=== PATIENT | male | born 1990 | race Hispanic/Latino ===

== ENCOUNTER 2020-04-22 05:47 | Emergency (ER) | payer SELFPAY ==
[2020-04-22] MEDS ORDERED: HYDROCODONE/APAP 5/325 MG TAB ONE (06:14)
[2020-04-22] MEDS ORDERED: DIAZEPAM 5 MG TABLET ONE (06:14)
[2020-04-22] MEDS ORDERED: KETOROLAC 30 MG/ML INJ ONE (06:15)
--- NOTE | 2020-04-22 06:48 | ER ---
Nurse's Notes [facility] Name: Ac Azevedo Age: 29 yrs Sex: Male : 1990 Arrival Date: 04/22/2020 Time: 05:48 Bed 5 Private MD: Diagnosis: Muscle spasm of back Presentation: 04/22 05:55 Chief complaint: Patient states: when I woke up i feel sudden left arm (shoulder) pain. rr5 denies trauma. Coronavirus screen: Proceed with normal triage. Ebola Screen: Patient negative for fever greater than or equal to 101.5 degrees Fahrenheit, and additional compatible Ebola Virus Disease symptoms Patient denies exposure to infectious person. Patient denies travel to an Ebola-affected area in the 21 days before illness onset. Initial Sepsis Screen: Does the patient meet any 2 criteria? No. Patient's initial sepsis screen is negative. Does the patient have a suspected source of infection? No. Patient's initial sepsis screen is negative. Risk Assessment: Do you want to hurt yourself or someone else? Patient reports no desire to harm self or others. Onset of symptoms was April 22, 2020. 05:55 Method Of Arrival: Ambulatory rr5 05:55 Acuity: BOBO 3 rr5 Historical: - Allergies: 06:00 No Known Allergies; rr5 - Home Meds: 06:00 None [Active]; rr5 - PMHx: 06:00 None; rr5 - PSHx: 06:00 ACL repair; rr5 - Immunization history:: Adult Immunizations up to date. - Social history:: Smoking status: Patient reports the use of cigarette tobacco products, smokes one-half pack cigarettes per day, Patient/guardian denies using alcohol, street drugs. Screenin:01 Abuse screen: Denies threats or abuse. Denies injuries from another. Nutritional rr5 screening: No deficits noted. Tuberculosis screening: No symptoms or risk factors identified. Fall Risk None identified. Total House Fall Scale indicates No Risk (0-24 pts). Assessment: 06:00 General: Appears in no apparent distress. uncomfortable, Behavior is appropriate for rr5 age, crying. 06:00 Pain: Complains of pain in left shoulder Pain does not radiate. Pain currently is 8 out rr5 of 10 on a pain scale. Quality of pain is described as throbbing, Pain began suddenly, Is continuous. Neuro: Level of Consciousness is awake, alert, obeys commands, Oriented to person, place, time, situation. Cardiovascular: Capillary refill < 3 seconds Patient's skin is warm and dry. Pulses are palpable in left radial artery. Respiratory: Airway is patent Respiratory effort is even, unlabored, Respiratory pattern is regular, symmetrical. GI: No signs and/or symptoms were reported involving the gastrointestinal system. : No signs and/or symptoms were reported regarding the genitourinary system. EENT: No signs and/or symptoms were reported regarding the EENT system. Derm: Skin is intact, is healthy with good turgor, Skin temperature is warm. Musculoskeletal: Capillary refill < 3 seconds, mild swelling left shoulder Reports pain in left shoulder Pain is 8 out of 10 on a pain scale. 06:39 Reassessment: Patient appears in no apparent distress at this time. Patient is alert, rr5 oriented x 3, equal unlabored respirations, skin warm/dry/pink. Patient states feeling better. Patient states symptoms have improved. 06:53 Reassessment: Patient appears in no apparent distress at this time. discharge rr5 instruction given and explained without complaints made. Vital Signs: 05:55 BP 121 / 85; Pulse 95; Resp 19; Temp 98.5; Pulse Ox 100% ; Weight 102.06 kg; Height 5 rr5 ft. 6 in. (167.64 cm); Pain 8/10; 06:39 BP 111 / 74; Pulse 87; Resp 18; Pulse Ox 99% ; Pain 1/10; rr5 06:53 BP 112 / 63; Pulse 75; Resp 16; Temp 97.7; Pulse Ox 100% ; rr5 05:55 Body Mass Index 36.32 (102.06 kg, 167.64 cm) rr5 ED Course: 05:48 Patient arrived in ED. ds1 05:49 Jim Mares, DEBRA is Primary Nurse. rr5 05:55 Lavell Osorio PA is PHCP. jmm 05:55 Herrera Adkins MD is Attending Physician. jmm 05:59 Triage completed. rr5 06:00 Arm band placed on right wrist. rr5 06:03 Patient has correct armband on for positive identification. Placed in gown. Bed in low rr5 position. Call light in reach. 06:54 No provider procedures requiring assistance completed. Patient did not have IV access rr5 during this emergency room visit. Administered Medications: 06:11 Drug: Valium 5 mg Route: PO; rr5 06:55 Follow up: Response: No adverse reaction rr5 06:11 Drug: [place] 5 mg-325 mg 1 tabs {Note: rass 0.} Route: PO; rr5 06:54 Follow up: Response: No adverse reaction; RASS: Alert and Calm (0) rr5 06:11 Drug: Ketorolac 30 mg Route: IM; Site: right deltoid; rr5 06:54 Follow up: Response: No adverse reaction rr5 Outcome: 06:48 Discharge ordered by MD. flores 06:54 Discharged to home ambulatory. rr5 06:54 Condition: stable 06:54 Discharge instructions given to patient, Instructed on discharge instructions, follow up and referral plans. medication usage, Demonstrated understanding of instructions, follow-up care, medications. 06:55 Patient left the ED. rr5 Signatures: Lavell Osorio PA PA jmm Sanford, Demi ds1 Jim Mares, RN RN rr5
--- NOTE | 2020-04-22 06:49 | EDPHYS ---
Physician Documentation [facility] Name: Ac Azevedo Age: 29 yrs Sex: Male : 1990 Arrival Date: 04/22/2020 Time: 05:48 Bed 5 Private MD: ED Physician Herrera Adkins HPI: 04/22 06:24 This 29 yrs old Male presents to ER via Ambulatory with complaints of Arm Pain jmm - L. 06:24 The patient or guardian complains of pain. Onset: The symptoms/episode began/occurred jmm gradually, 2 day(s) ago. Modifying factors: The symptoms are alleviated by nothing. the symptoms are aggravated by movement, lifting weight. Associated signs and symptoms: Pertinent negatives: fever, swelling, tingling, vomiting. This is a 29 year old male with no chronic medical conditions that presents to the ED with complaints of left shoulder pain beginning approx 2 days ago. Worsening this morning. Denies injury. Denies chest pain. Denies shortness of breath. . Historical: - Allergies: 06:00 No Known Allergies; rr5 - Home Meds: 06:00 None [Active]; rr5 - PMHx: 06:00 None; rr5 - PSHx: 06:00 ACL repair; rr5 - Immunization history:: Adult Immunizations up to date. - Social history:: Smoking status: Patient reports the use of cigarette tobacco products, smokes one-half pack cigarettes per day, Patient/guardian denies using alcohol, street drugs. ROS: 06:24 Constitutional: Negative for fever, chills, and weight loss, Cardiovascular: Negative jmm for chest pain, palpitations, and edema, Respiratory: Negative for shortness of breath, cough, wheezing, and pleuritic chest pain. 06:24 Back: Positive for pain with movement. 06:24 MS/extremity: Positive for pain. 06:24 All other systems are negative. Exam: 06:24 Constitutional: This is a well developed, well nourished patient who is awake, alert, jmm and in no acute distress. Head/Face: atraumatic. Eyes: EOMI, no conjunctival erythema appreciated ENT: Moist Mucus Membranes Neck: Trachea midline, Supple Chest/axilla: Normal chest wall appearance and motion. Cardiovascular: Regular rate and rhythm. No edema appreciated Respiratory: Normal respirations, no respiratory distress appreciated Abdomen/GI: Non distended, soft Skin: General appearance color normal MS/ Extremity: Moves all extremities, no obvious deformities appreciated, no edema noted to the lower extremities Neuro: Awake and alert, normal gait Psych: Behavior is normal, Mood is normal, Patient is cooperative and pleasant 06:24 Back: pain, that is moderate, of the left trapezius, muscle spasm, is appreciated in the left trapezius. 06:24 Musculoskeletal/extremity: ROM: intact in all extremities, full ed tech strength, full radial pulse, compartments are soft, NVI. 06:24 Skin: Appearance: Color: normal in color. 06:24 Neuro: Orientation: is normal, Mentation: is normal, Memory: is normal. 06:24 Psych: Behavior/mood is pleasant, cooperative. Vital Signs: 05:55 BP 121 / 85; Pulse 95; Resp 19; Temp 98.5; Pulse Ox 100% ; Weight 102.06 kg; Height 5 rr5 ft. 6 in. (167.64 cm); Pain 8/10; 06:39 BP 111 / 74; Pulse 87; Resp 18; Pulse Ox 99% ; Pain 1/10; rr5 06:53 BP 112 / 63; Pulse 75; Resp 16; Temp 97.7; Pulse Ox 100% ; rr5 05:55 Body Mass Index 36.32 (102.06 kg, 167.64 cm) rr5 MDM: 05:59 Patient medically screened. [facility] 06:47 Data reviewed: vital signs, nurses notes. Counseling: I had a detailed discussion with mark the patient and/or guardian regarding: the historical points, exam findings, and any diagnostic results supporting the discharge/admit diagnosis, the need for outpatient follow up, to return to the emergency department if symptoms worsen or persist or if there are any questions or concerns that arise at home. ED course: PE findings consistent with muscle spasm. Pain is relieved in the ED. Patient is advised to follow up with pcp and otherwise given strict return precautions. . Administered Medications: 06:11 Drug: Valium 5 mg Route: PO; rr5 06:55 Follow up: Response: No adverse reaction rr5 06:11 Drug: [place] 5 mg-325 mg 1 tabs {Note: rass 0.} Route: PO; rr5 06:54 Follow up: Response: No adverse reaction; RASS: Alert and Calm (0) rr5 06:11 Drug: Ketorolac 30 mg Route: IM; Site: right deltoid; rr5 06:54 Follow up: Response: No adverse reaction rr5 Disposition: 18:59 Co-signature as Attending Physician, Herrera Adkins MD. pkrosa isela Disposition: 04/22/20 06:48 Discharged to Home. Impression: Muscle spasm of back. - Condition is Stable. - Discharge Instructions: Muscle Cramps and Spasms. - Prescriptions for Ibuprofen 800 mg Oral Tablet - take 1 tablet by ORAL route every 12 hours As needed take with food; 20 tablet. Zanaflex 4 mg Oral Tablet - take 1 tablet by ORAL route every 8 hours As needed; 20 tablet. - Medication Reconciliation Form, Thank You Letter, Antibiotic Education, Prescription Opioid Use form. - Follow up: Private Physician; When: 2 - 3 days; Reason: Recheck today's complaints, Continuance of care, Re-evaluation by your physician. Signatures: Herrera Adkins MD MD pkl Mickail, Joel, PA PA jmm Roque, Raymond RN RN rr5 Corrections: (The following items were deleted from the chart) 06:55 06:48 04/22/2020 06:48 Discharged to Home. Impression: Muscle spasm of back. Condition rr5 is Stable. Forms are Medication Reconciliation Form, Thank You Letter, Antibiotic Education, Prescription Opioid Use. Follow up: Private Physician; When: 2 - 3 days; Reason: Recheck today's complaints, Continuance of care, Re-evaluation by your physician. mark
[2020-04-22 07:04] VITALS: BP 112/63; TEMP 97.7; O2SAT 100
== END 2020-04-22 06:55 | disposition home or self-care (01) ==
LOC: ER 05:47
DX: M62.830 Muscle spasm of back (principal); F17.210 Nicotine dependence, cigarettes, uncomplicated
CPT/HCPCS: 96372; 99283